=== PATIENT | male | born 1970 | race Caucasian/White ===

== ENCOUNTER 2021-12-19 13:29 | Emergency (ER) | payer SELFPAY ==
[~2021-12-19] VITALS: Ht 172.7 cm; Wt 72.6 kg
[2021-12-19] MEDS ORDERED: DEXAMETHASONE SOD PHOS 10 MG/1 ML VIAL IM ONE (14:15)
[2021-12-19] MEDS ORDERED: METHOCARBAMOL 750 MG TAB PO ONE (14:15)
[2021-12-19] MEDS ORDERED: HYDROCODONE/APAP 5MG-325MG TAB PO PRN (14:15)
[2021-12-19] MEDS ORDERED: KETOROLAC TROME10 MG PO (15:27)
[2021-12-19] MEDS ORDERED: METHOCARBAMOL750 MG PO (15:27)
== END 2021-12-19 16:43 | disposition home or self-care (01) ==
LOC: ER 13:39
DX: M54.42 Lumbago with sciatica, left side (principal); S93.402A Sprain of unspecified ligament of left ankle, initial encounter; X50.1XXA Overexertion from prolonged static or awkward postures, initial encounter; Y93.01 Activity, walking, marching and hiking; Y92.008 Other place in unspecified non-institutional (private) residence as the place of occurrence of the external cause; I34.1 Nonrheumatic mitral (valve) prolapse
CPT/HCPCS: 73610; 99283; J1100